=== PATIENT | female | born 1995 | race Two or more races ===

== ENCOUNTER 2023-08-27 16:07 | Outpatient (CLI) | payer OTHER | END 2023-08-27 16:12 | disposition home or self-care (01) | LOC: PRENATAL 16:07 | PROVIDERS: ATTEND Obstetrics & Gynecology Maternal & Fetal Medicine | DX: O35.3XX0 Maternal care for (suspected) damage to fetus from viral disease in mother, not applicable or unspecified (principal); O44.00 Complete placenta previa NOS or without hemorrhage, unspecified trimester; Z3A.19 19 weeks gestation of pregnancy ==

== ENCOUNTER → 2023-10-03 13:43 | Outpatient (CLI) | payer OTHER | END | disposition home or self-care (01) | LOC: PRENATAL 13:43 | PROVIDERS: ATTEND Obstetrics & Gynecology Maternal & Fetal Medicine | DX: O26.849 Uterine size-date discrepancy, unspecified trimester (principal); O34.219 Maternal care for unspecified type scar from previous cesarean delivery; O26.879 Cervical shortening, unspecified trimester; Z3A.25 25 weeks gestation of pregnancy ==

== ENCOUNTER 2023-11-06 13:15 | Outpatient (CLI) | payer OTHER | END 2023-11-06 13:16 | disposition home or self-care (01) | LOC: PRENATAL 13:15 | PROVIDERS: ATTEND Obstetrics & Gynecology Maternal & Fetal Medicine | DX: O26.849 Uterine size-date discrepancy, unspecified trimester (principal); O34.219 Maternal care for unspecified type scar from previous cesarean delivery; O26.879 Cervical shortening, unspecified trimester; Z3A.29 29 weeks gestation of pregnancy ==